=== PATIENT | male | born 1970 | race Caucasian/White ===

== ENCOUNTER 2022-12-20 16:19 | Inpatient (IN) | payer SELFPAY ==
[2022-12-20 16:50] LABS: #Eosinphils 0.3 thou/uL (0.0-0.7); #Monocytes 0.9 thou/uL (0.11-0.59); #Neutrophils 6.9 thou/uL (1.40-6.50); %Basophils 0.4 % (0.0-1.0); %Eosinophils 3.1 % (0.0-10.0); %Lymphocytes 9.4 % (21.0-51.0); %Monocytes 9.9 % (0.0-10.0); Hemoglobin 9.4 g/dL (14.0-18.0); Mean Corpuscular HGB CONC 32.5 g/dL (32.0-36.0); Mean Corpuscular Hemoglobin 28.5 pg (27.0-31.0); Mean Corpuscular Volume 87.6 fl (78.0-98.0); Platelet Count 142 10x3/uL (130-400); RBC Distribution Width 15.7 % (11.5-14.5); White Blood Cell (WBC) Count 8.9 10x3/uL (4.8-10.8)
[2022-12-20 17:12] LABS: Anion Gap 19 mmol/L (10-20); BUN (Urea Nitrogen) 60 mg/dL (8.4-25.7); Calc. Creatinine Clearance 0 mL/min (70-130); Carbon Dioxide 24 mmol/L (22-29); Chloride 97 mmol/L (98-107); Potassium 3.2 mmol/L (3.5-5.1); Sodium 137 mmol/L (136-145)
[2022-12-20 17:13] LABS: ALT (SGPT) 10 U/L (8-55); AST (SGOT) 11 U/L (5-34); Albumin 4.1 g/dL (3.5-5.0); Alkaline Phosphatase 91 U/L (40-110); Bilirubin, Total 0.7 mg/dL (0.2-1.2); Estimated GFR 6; Globulin 2.2 g/dL (2.4-3.5); Glucose 109 mg/dL (70-105); Protein, Total 6.3 g/dL (6.0-8.3)
[2022-12-20 17:34] LABS: CKMB 2.7 ng/mL (0-6.6)
[2022-12-20] MEDS ORDERED: Ondansetron PF 4 MG/2 ML Vial IVP PRN (19:15)
[2022-12-20] MEDS ORDERED: Aspirin 325 MG TAB PO SCH (19:15)
[2022-12-20] MEDS ORDERED: Nitroglycerin 0.4 MG TAB (25 Tab Bottle) SL PRN (19:15)
[2022-12-20] MEDS ORDERED: Ondansetron ODT 4 MG TAB PO PRN (19:15)
[2022-12-20] MEDS ORDERED: Acetaminophen 325 MG TAB PO PRN (19:15)
[2022-12-20 20:52] LABS: Troponin I 0.125 ng/mL (< 0.028)
[2022-12-21 00:24] LABS: Troponin I 0.097 ng/mL (< 0.028)
[2022-12-21 04:36] VITALS: BMI 35.4
[2022-12-21 05:02] LABS: #Eosinphils 0.4 thou/uL (0.0-0.7); #Monocytes 0.8 thou/uL (0.11-0.59); #Neutrophils 4.4 thou/uL (1.40-6.50); %Basophils 0.6 % (0.0-1.0); %Eosinophils 5.8 % (0.0-10.0); %Lymphocytes 13.3 % (21.0-51.0); %Monocytes 12.7 % (0.0-10.0); %Neutrophils 67.1 % (42.0-75.0); Hemoglobin 9.9 g/dL (14.0-18.0); Mean Corpuscular HGB CONC 32.6 g/dL (32.0-36.0); Mean Corpuscular Hemoglobin 28.5 pg (27.0-31.0); Mean Corpuscular Volume 87.6 fl (78.0-98.0); Platelet Count 125 10x3/uL (130-400); RBC Distribution Width 15.6 % (11.5-14.5); Red Blood Cell (RBC) Count 3.47 mill/uL (4.70-6.10); White Blood Cell (WBC) Count 6.6 10x3/uL (4.8-10.8)
[2022-12-21 05:26] LABS: Anion Gap 19 mmol/L (10-20); BUN (Urea Nitrogen) 65 mg/dL (8.4-25.7); Calc. Creatinine Clearance 17 mL/min (70-130); Carbon Dioxide 23 mmol/L (22-29); Chloride 98 mmol/L (98-107); Cholesterol 120 mg/dl (< 200 Desired); Estimated GFR 6; Glucose 96 mg/dL (70-105); HDL Cholesterol 40 mg/dL (>60 Neg Risk); LDL Cholesterol, Calculated 68 mg/dL; Potassium 3.4 mmol/L (3.5-5.1); Sodium 137 mmol/L (136-145); Triglycerides 61 mg/dL (Less than 150)
[2022-12-21 07:17] LABS: Amphetamine Detected (NotDetected); Barbiturates Screen Not Detected (NotDetected); Benzodiazepine Screen Not Detected (NotDetected); Cocaine Metabolite Screen Not Detected (NotDetected); Methadone Not Detected (NotDetected); Methamphetamine Detected (NotDetected); Opiate Screen Not Detected (NotDetected); Oxycodone Screen Not Detected (NotDetected); Phencyclidine (PCP) Not Detected (NotDetected); THC/Cannabinoid Screen Not Detected (NotDetected); Tricyclic Screen Not Detected (NotDetected)
[2022-12-21] MEDS: Sevelamer Carbonate 800 MG TAB PO SCH ×3 (08:29→20:40)
[2022-12-21] MEDS: NIFEdipine XL 60 MG TAB PO SCH ×2 (08:29→20:40)
[2022-12-21] MEDS ORDERED: Aspirin Chewable 81 MG TAB PO SCH (09:00)
[2022-12-21] MEDS ORDERED: Ergocalciferol 1.25 MG(50,000 UNITS) CAP PO SCH (09:00)
[2022-12-21] MEDS ORDERED: Heparin 10,000 UNITS/ 10 ML VIAL ONE (10:55)
[2022-12-21] MEDS ORDERED: Lorazepam 2 MG/ML VIAL IM PRN (11:56)
[2022-12-21] MEDS ORDERED: Lorazepam 1 MG TAB PO PRN (11:56)
[2022-12-21] MEDS ORDERED: Thiamine HCl 200 MG/2 ML VIAL SLOW IVP SCH (12:00)
[2022-12-21] MEDS ORDERED: Potassium Chloride 20 MEQ TAB PO SCH (12:00)
[2022-12-21 15:44] LABS: HBSAB Concentration Less than 8.00 mIU/mL; HBSAg Index 0.16 S/CO (0-0.99); Hep B Core Total Ab Non-Reactive (NonReactive); Hep B Core Total Index 0.06 S/CO (0-0.79); Hep B Surf AB Non-Reactive (NonReactive); Hep B Surf Ag Non-Reactive S/CO (NonReactive); Hep C IgG Ab Non-Reactive S/CO (NonReactive); Hep C Index 0.05 S/CO (0-0.79)
[2022-12-21] MEDS ORDERED: Atorvastatin Calcium 40 MG TAB PO SCH (21:00)
[2022-12-21 21:03] VITALS: BP 162/97; TEMP 98.9
[2022-12-22] MEDS ORDERED: Multivit, Therapeutic 1 TAB PO SCH (09:00)
[2022-12-22] MEDS ORDERED: Folic Acid 1 MG TAB PO SCH (09:00)
[2022-12-22] MEDS ORDERED: Lorazepam 1 MG TAB PO PRN (11:56)
[2022-12-23] MEDS ORDERED: Lorazepam 1 MG TAB PO PRN (11:56)
[2022-12-24] MEDS ORDERED: Lorazepam 0.5 MG TAB PO PRN (11:56)
[2022-12-24] MEDS ORDERED: Thiamine 100 MG TAB PO SCH (12:00)
== END 2022-12-21 22:10 | disposition home or self-care (01) | DRG 280 ==
LOC: ERS 16:19 → 2SW 18:48 → OBSVTOIN 12-21 15:12
PROVIDERS: ADMIT Physician Assistant; ATTEND Internal Medicine
PROC: HZ2ZZZZ Detoxification Services for Substance Abuse Treatment (ICD-10-PCS; principal; 2022-12-21)
PROC: 5A1D70Z Performance of Urinary Filtration, Intermittent, Less than 6 Hours Per Day (ICD-10-PCS; 2022-12-21)
DX: I95.3 Hypotension of hemodialysis (principal); I21.A1 Myocardial infarction type 2; N18.6 End stage renal disease; I13.2 Hypertensive heart and chronic kidney disease with heart failure and with stage 5 chronic kidney disease, or end stage renal disease; I50.32 Chronic diastolic (congestive) heart failure; Z79.899 Other long term (current) drug therapy; I95.2 Hypotension due to drugs; T46.5X5A Adverse effect of other antihypertensive drugs, initial encounter; E78.5 Hyperlipidemia, unspecified; F17.210 Nicotine dependence, cigarettes, uncomplicated; F15.10 Other stimulant abuse, uncomplicated; E87.6 Hypokalemia; D63.1 Anemia in chronic kidney disease; F19.10 Other psychoactive substance abuse, uncomplicated; Z88.0 Allergy status to penicillin; Z99.2 Dependence on renal dialysis; Z71.41 Alcohol abuse counseling and surveillance of alcoholic
CPT/HCPCS: 36415; 71045; 78452; 80048; 80053; 80061; 80306; 82553; 84484; 85025; 86704; 90935; 93005; 93017; 93306; 94760; 96374; A9500; G0257; G0378; J0153; J1644; J3411

== ENCOUNTER 2024-04-02 12:59 | Inpatient (IN) | payer OTHER, SELFPAY ==
[2024-04-02 13:34] LABS: #Basophils 0.06 10x3/uL (0.0-0.2); %Basophils 0.7 % (0.0-1.0); %Eosinophils 1.9 % (0.0-10.0); %Lymphocytes 10.3 % (21.0-51.0); %Monocytes 9.5 % (0.0-10.0); %Neutrophils 76.9 % (42.0-75.0); Hematocrit 34.7 % (42.0-52.0); Hemoglobin 11.3 g/dL (14.0-18.0); Mean Corpuscular HGB CONC 32.6 g/dL (32.0-36.0); Mean Corpuscular Hemoglobin 30.1 pg (27.0-31.0); Mean Corpuscular Volume 92.5 fL (78.0-98.0); Mean Platelet Volume 11.1 fL (7.4-10.4); Platelet Count 134 10x3/uL (130-400); RBC Distribution Width 16.4 % (11.5-14.5); Red Blood Cell (RBC) Count 3.75 mill/uL (4.70-6.10)
[2024-04-02 13:51] LABS: Magnesium 2.3 mg/dL (1.6-2.6)
[2024-04-02 13:54] LABS: ALT (SGPT) 8 U/L (8-55); AST (SGOT) 7 U/L (5-34); Alkaline Phosphatase 77 U/L (40-110); Anion Gap 17 mmol/L (10-20); BUN (Urea Nitrogen) 62 mg/dL (8.4-25.7); Bilirubin, Total 0.9 mg/dL (0.2-1.2); Calc. Creatinine Clearance 0 mL/min (70-130); Calcium 9.1 mg/dL (7.8-10.44); Carbon Dioxide 28 mmol/L (22-29); Chloride 90 mmol/L (98-107); Estimated GFR 10; Globulin 3.1 g/dL (2.4-3.5); Glucose 136 mg/dL (70-105); Potassium 4.9 mmol/L (3.5-5.1); Protein, Total 6.1 g/dL (6.0-8.3); Sodium 130 mmol/L (136-145)
[2024-04-02 13:57] LABS: INR-International Normal Ratio 1.4; PTT 30.7 sec (22.9-36.1); Prothrombin Time 16.7 sec (12.0-14.7)
[2024-04-02 15:02] LABS: Troponin I 0.035 ng/mL (< 0.028)
[2024-04-02] MEDS ORDERED: Acetaminophen 325 MG TAB PO PRN (15:38)
[2024-04-02] MEDS ORDERED: Acetaminophen 650 MG Suppository PR PRN (15:38)
[2024-04-02 16:57] VITALS: BMI 36.3
[2024-04-03 03:59] LABS: #Basophils 0.08 10x3/uL (0.0-0.2); %Basophils 0.8 % (0.0-1.0); %Eosinophils 1.9 % (0.0-10.0); %Lymphocytes 9.5 % (21.0-51.0); %Monocytes 11.3 % (0.0-10.0); Hemoglobin 11.3 g/dL (14.0-18.0); Mean Corpuscular HGB CONC 32.3 g/dL (32.0-36.0); Mean Corpuscular Volume 92.8 fL (78.0-98.0); Platelet Count 151 10x3/uL (130-400); RBC Distribution Width 16.5 % (11.5-14.5); Red Blood Cell (RBC) Count 3.77 mill/uL (4.70-6.10)
[2024-04-03 04:13] LABS: Anion Gap 19 mmol/L (10-20); BUN (Urea Nitrogen) 67 mg/dL (8.4-25.7); Calc. Creatinine Clearance 24 mL/min (70-130); Calcium 8.7 mg/dL (7.8-10.44); Carbon Dioxide 24 mmol/L (22-29); Chloride 92 mmol/L (98-107); Estimated GFR 9; Glucose 86 mg/dL (70-105); Potassium 4.9 mmol/L (3.5-5.1); Sodium 130 mmol/L (136-145)
[2024-04-03 09:45] LABS: HBSAB Concentration Less than 8.00 mIU/mL; HBsAg Index 0.38 S/CO (0-0.99); Hep B Core Total Ab NONREACTIVE (NonReactive); Hep B Core Total Index 0.06 S/CO (0-0.79); Hep B Surf AB NONREACTIVE (NonReactive); Hep B Surf Ag NONREACTIVE S/CO (NonReactive); Hep C IgG Ab NONREACTIVE S/CO (NonReactive); Hep C Index 0.04 S/CO (0-0.79)
[2024-04-04 08:40] LABS: Hemoglobin 11.2 g/dL (14.0-18.0); Mean Corpuscular HGB CONC 32.9 g/dL (32.0-36.0); Mean Corpuscular Hemoglobin 30.1 pg (27.0-31.0); Mean Corpuscular Volume 91.4 fL (78.0-98.0); Mean Platelet Volume 10.2 fL (7.4-10.4); Platelet Count 146 10x3/uL (130-400); RBC Distribution Width 16.7 % (11.5-14.5); Red Blood Cell (RBC) Count 3.72 mill/uL (4.70-6.10)
[2024-04-04] MEDS: Sevelamer Carbonate 800 MG TAB PO SCH (09:18)
[2024-04-04] MEDS: NIFEdipine XL 60 MG ER.TAB PO SCH (20:05)
[2024-04-05 04:47] LABS: Anion Gap 18 mmol/L (10-20); BUN (Urea Nitrogen) 63 mg/dL (8.4-25.7); Calc. Creatinine Clearance 24 mL/min (70-130); Calcium 9.2 mg/dL (7.8-10.44); Carbon Dioxide 25 mmol/L (22-29); Chloride 92 mmol/L (98-107); Estimated GFR 9; Glucose 94 mg/dL (70-105); Magnesium 2.3 mg/dL (1.6-2.6); Potassium 4.6 mmol/L (3.5-5.1); Sodium 130 mmol/L (136-145)
[2024-04-05] MEDS: Losartan 25 MG TAB PO SCH (08:01)
[2024-04-05 08:07] LABS: Hematocrit 32.3 % (42.0-52.0); Hemoglobin 10.6 g/dL (14.0-18.0); Mean Corpuscular HGB CONC 32.8 g/dL (32.0-36.0); Mean Corpuscular Hemoglobin 30.3 pg (27.0-31.0); Mean Corpuscular Volume 92.3 fL (78.0-98.0); Mean Platelet Volume 10.1 fL (7.4-10.4); Platelet Count 147 10x3/uL (130-400); RBC Distribution Width 16.6 % (11.5-14.5)
[2024-04-05] MEDS ORDERED: Lidocaine 1% PF 5 ML VIAL ONE (15:04)
[2024-04-05 20:46] LABS: RBC Count-Automated (BF) 200 /cu.mm; WBC/Nucleated-Auto (BF) 178 /cu.mm
[2024-04-05 20:58] LABS: Body Fluid Source Ascites Body Fluid; Tube # EDTA
[2024-04-05 20:59] LABS: BF Color Yellow; Clarity Clear (Clear)
[2024-04-05 21:15] LABS: BF Segmented Neutrophils 7 %; Cell Count Non Hematic 75 %; Lymphocytes 17 %
[2024-04-06 05:16] LABS: Anion Gap 16 mmol/L (10-20); BUN (Urea Nitrogen) 48 mg/dL (8.4-25.7); Calc. Creatinine Clearance 29 mL/min (70-130); Calcium 8.4 mg/dL (7.8-10.44); Carbon Dioxide 24 mmol/L (22-29); Chloride 98 mmol/L (98-107); Estimated GFR 12; Glucose 82 mg/dL (70-105); Magnesium 2.3 mg/dL (1.6-2.6); Potassium 4.1 mmol/L (3.5-5.1); Sodium 134 mmol/L (136-145)
[2024-04-06 08:13] LABS: Hematocrit 32.8 % (42.0-52.0); Hemoglobin 10.6 g/dL (14.0-18.0); Mean Corpuscular HGB CONC 32.3 g/dL (32.0-36.0); Mean Corpuscular Hemoglobin 30.1 pg (27.0-31.0); Mean Corpuscular Volume 93.2 fL (78.0-98.0); Mean Platelet Volume 9.8 fL (7.4-10.4); Platelet Count 148 10x3/uL (130-400); RBC Distribution Width 16.8 % (11.5-14.5); Red Blood Cell (RBC) Count 3.52 mill/uL (4.70-6.10)
[2024-04-06] MEDS: NIFEdipine XL 60 MG ER.TAB PO SCH (08:23)
[2024-04-06 08:28] VITALS: BP 151/93
[2024-04-06 09:34] VITALS: TEMP 97.8
== END 2024-04-06 14:45 | disposition home or self-care (01) | DRG 432 ==
LOC: ERS 12:59 → OBSVTOIN 15:46 → 2SW 15:46 → INTOOBSV 15:46 → UNDOADMOB 15:46 → OBSVTOIN 04-03 18:47 → 2SW 04-03 18:47 → OBS 04-05 11:34
PROVIDERS: ADMIT Internal Medicine Nephrology; ATTEND Student in an Organized Health Care Education/Training Program
PROC: 5A1D70Z Performance of Urinary Filtration, Intermittent, Less than 6 Hours Per Day (ICD-10-PCS; 2024-04-03)
PROC: 0W9G3ZZ Drainage of Peritoneal Cavity, Percutaneous Approach (ICD-10-PCS; principal; 2024-04-05)
DX: K74.60 Unspecified cirrhosis of liver (principal); N18.6 End stage renal disease; I13.2 Hypertensive heart and chronic kidney disease with heart failure and with stage 5 chronic kidney disease, or end stage renal disease; I50.32 Chronic diastolic (congestive) heart failure; R18.8 Other ascites; E78.5 Hyperlipidemia, unspecified; D63.1 Anemia in chronic kidney disease; R77.8 Other specified abnormalities of plasma proteins; I95.9 Hypotension, unspecified; Z99.2 Dependence on renal dialysis; Z79.899 Other long term (current) drug therapy; Z88.0 Allergy status to penicillin
CPT/HCPCS: 36415; 49083; 71045; 76705; 80048; 80053; 82042; 83735; 83880; 84484; 85025; 85027; 85060; 85610; 85730; 86704; 86706; 86803; 87340; 88112; 88305; 89051; 90935; 93005; 94760; 96360; G0257; G0378